=== PATIENT | male | born 1995 | race Caucasian/White ===

== ENCOUNTER 2016-10-16 18:13 | Emergency (ER) | payer OTHER ==
[~2016-10-16] VITALS: Ht 175.3 cm; Wt 107.0 kg
[2016-10-16 18:17] VITALS: TEMP 37.1; Ht 175.3 cm; Wt 107.0 kg
[2016-10-16] MEDS ORDERED: CLR10 PO (18:28)
[2016-10-16] MEDS ORDERED: IBUP-1050 PO (18:28)
[2016-10-16] MEDS ORDERED: PROPARACAINE HCL 0.5% OP SOLN 15 ML BTL OP STA (18:39)
--- NOTE | 2016-10-16 18:48 | EMERGENCY ROOM VISIT NOTE ---
ED Visit Note First contact with patient: 18:25 CHIEF COMPLAINT: Red, irritated eye HISTORY OF PRESENT ILLNESS: This 21-year-old male presents to the emergency department ambulatory complaining of redness in both eyes which has gradually increased over the past 2 days. Mild constant pain, irritating in nature, which is rated as 7/10. There is purulent discharge from the bilateral eyes and the lids are crusted in the morning. The patient reports mild blurry vision from the right eye but denies any decrease or loss of vision. The patient does not wear contacts. There is no known trauma to the eye. The patient has had runny nose and cough. He has not had fever. He states that his significant other has similar symptoms. He was seen at [facility] yesterday and started on Cipro drops. The patient states that he used the drops and immediately felt a burning sensation in his eyes. He then went to [employer] today and was probably referred to the emergency department. The patient does not have a foreign body sensation. No headache, rash, nausea or vomiting. REVIEW OF SYSTEMS: A 6 system review of systems was completed with positives and pertinent negatives in the HPI. ALLERGIES: No known drug allergies MEDICATIONS: None PMH: None SOCIAL HISTORY: The patient does not smoke. He is a [employer] student PHYSICAL EXAM: Vital Signs: Reviewed Nurse's notes, Temperature 37.1. GENERAL: This is a 21-year-old male, in no acute distress, well-developed, well- nourished. SKIN: Warm, dry. No cyanosis. No petechia. EYES: Both pupils are equal round and reactive to light and accommodation, EOMs intact. There is purulent discharge in both eyes and moderate injection. There is no foreign body of the eyelid with lid eversion. Funduscopic exam reveals no hemorrhages, papilledema, or other abnormalities. No foreign body on the cornea, no hyphema. No uptake of fluorescein visible with UV light. No corneal abrasion and no corneal ulcer. Visual Acuity is 20/45 right and 20/40 left without correction. Intraocular pressure was 19 in the right and 15 in the left by auto tonometer. EMERGENCY DEPARTMENT COURSE: I examined the patient. A slit lamp exam was performed and is as described above. The patient appears to have bilateral conjunctivitis. He has injection of both eyes. There is purulent drainage. There is no hyphema or hypopyon. The pupils are equal, round reactive to light. There is no direct or consensual photophobia. There is no evidence for corneal abrasion or corneal ulceration. Intraocular pressures were not elevated. The patient started Ciloxan drops which burned. This may be due to the medication itself or potentially a reaction to the medication. He will be switched to erythromycin ointment. He should return in 24-48 hours for a recheck or see ophthalmology if his symptoms are not improving. He should return sooner with any worsening symptoms. The patient was discharged home in good condition. DIAGNOSIS: Acute conjunctivitis DISCHARGE INSTRUCTIONS: Erythromycin ointment to the lower eyelids every 8 hours for 5 days. [facility] in 24-48 hours if symptoms are not improving. Return with any worsening symptoms. Current/Historical Medications Scheduled Erythromycin Opth (Erythromycin Opth), 1 CM OPB TID Ibuprofen (Advil), 400 MG PO PRN UD Loratadine (Claritin), 10 MG PO DAILY Vital Signs Date Time Temp Pulse Resp B/P Pulse Ox O2 Delivery O2 Flow Rate FiO2 10/16/16 19:19 84 18 139/91 99 10/16/16 18:17 37.1 95 18 151/106 99 Room Air Departure Information Impression Primary Impression: Conjunctivitis Dispostion Home / Self-Care Condition GOOD Prescriptions Erythromycin Opth (ERYTHROMYCIN OPTH) 12 Appln/3.5 Gm Oint 1 CM OPB TID for 5 Days, #1 TUBE Prov: Morenita Bob PA-C 10/16/16 Referrals Paul Rodriguez,D.OAdrianna Patient Instructions Conjunctivitis Infec Cause, My [facility] Additional Instructions Erythromycin ointment to the lower eyelids every 8 hours for 5 days. [facility]- [facility] with [facility] or [facility]mology in 24-48 hours if symptoms are not improving. Return with any worsening symptoms. Stop the drops you are currently using Problem Qualifiers Primary Impression: Conjunctivitis Conjunctivitis type: acute Laterality: bilateral
[2016-10-16] MEDS ORDERED: ERYOPO OPB (19:08)
[2016-10-16] MEDS ORDERED: ERYTHROMYCIN OP OINT 5 MG/GM 3.5 GM TUBE OP ONE (19:15)
[2016-10-16 19:19] VITALS: BP 139/91; PULSE 84; O2SAT 99
== END 2016-10-16 19:20 | disposition home or self-care (01) ==
LOC: C.EDB 18:15 → C.EDD 19:20
DX: H10.33 Unspecified acute conjunctivitis, bilateral (principal)